=== PATIENT | male | born 1975 | race Caucasian/White ===

== ENCOUNTER 2024-11-01 10:12 | Inpatient (IN) | payer OTHER ==
[~2024-11-01] VITALS: Ht 170.2 cm; Wt 77.3 kg
[2024-11-01] MEDS ORDERED: METF-1211 PO (11:04)
[2024-11-01 12:38] LABS: CALCIUM, TOTAL 8.7 mg/dL (8.8-10.5); CREATININE 0.79 mg/dL (0.60-1.30); GLOMERULAR FILTR. RATE CALC > 60 mL/min (>60); GLUCOSE,RANDOM 123 mg/dL (70-110); PLATELET COUNT (AUTO) 372 K/uL (150-450); RED BLOOD CELL COUNT(AUTO) 5.10 MIL/uL (4.50-5.90); RED CELL DISTRIBUTION WIDTH 13.0 % (11.5-14.5); SODIUM SERUM 141 mmol/L (136-145); UREA NITROGEN, BLOOD 7 mg/dL (7-18); WHITE BLOOD COUNT (AUTO) 6.9 K/uL (4.5-11.0)
[2024-11-01 12:50] LABS: ERYTHROCYTE SEDIMENTATION RATE 26 MM/HR (0-15)
[2024-11-01] MEDS: VANCOMYCIN 1GM/WATER(PEG/NADA) 200 ML IV ONE (13:15)
[2024-11-01] MEDS: PIPERACILLIN/TAZO 3.375 GM/D5W 50 ML IV ONE (14:24)
[2024-11-01 17:10] VITALS: BP 114/76; PULSE 59; RESP 17; TEMP 98.1; O2SAT 100
[2024-11-01] MEDS ORDERED: DEXTROSE 50%-WATER 25 GM/50 ML SYRINGE IVP PRN (20:15)
[2024-11-01 20:34] VITALS: BP 100/61; PULSE 60; RESP 18; TEMP 98.1; O2SAT 98
[2024-11-01] MEDS ORDERED: SODIUM CHLORIDE 0.9% 500 ML IV ONE (21:10)
[2024-11-01] MEDS: PIPERACILLIN/TAZO 3.375 GM/D5W 50 ML IV SCH (21:12)
[2024-11-01 21:46] LABS: GLUCOMETER DEV NAME(LOC) 6N.2C; GLUCOSE,POINT OF CARE 131 MG/DL (70-110)
[2024-11-01] MEDS ORDERED: SODIUM CHLORIDE 0.9% 100 ML ONE (22:54)
[2024-11-01] MEDS ORDERED: IOHEXOL 300 MG/ML 100 ML VIAL ONE (22:54)
[2024-11-01] MEDS: ACETAMINOPHEN 325 MG TABLET PO PRN (23:41)
[2024-11-01] MEDS: VANCOMYCIN 1GM/WATER(PEG/NADA) 200 ML IV SCH (23:41)
[2024-11-02 04:37] VITALS: BP 102/61; PULSE 68; RESP 18; TEMP 98.1; O2SAT 99
[2024-11-02 06:16] LABS: GLUCOMETER DEV NAME(LOC) 6S.1D; GLUCOSE,POINT OF CARE 131 MG/DL (70-110)
[2024-11-02 06:57] LABS: CALCIUM, TOTAL 8.5 mg/dL (8.8-10.5); CREATININE 0.88 mg/dL (0.60-1.30); GLOMERULAR FILTR. RATE CALC > 60 mL/min (>60); GLUCOSE,RANDOM 124 mg/dL (70-110); SODIUM SERUM 138 mmol/L (136-145); UREA NITROGEN, BLOOD 8 mg/dL (7-18)
[2024-11-02] MEDS: INSULIN LISPRO 100 UNITS/ML SQ PRN (11:38)
[2024-11-02 19:45] VITALS: BP 104/72; PULSE 82; RESP 18; TEMP 97.9; O2SAT 98
[2024-11-02 20:21] LABS: GLUCOMETER DEV NAME(LOC) 6S.1D; GLUCOSE,POINT OF CARE 209 MG/DL (70-110)
[2024-11-02 21:10] LABS: GLUCOMETER DEV NAME(LOC) 6S.2; GLUCOSE,POINT OF CARE 192 MG/DL (70-110)
[2024-11-02 23:51] LABS: GLUCOMETER DEV NAME(LOC) 6N.2C; GLUCOSE,POINT OF CARE 116 MG/DL (70-110)
[2024-11-03 03:15] VITALS: BP 94/72; PULSE 71; RESP 18; TEMP 98.1; O2SAT 98
[2024-11-03 07:25] LABS: CALCIUM, TOTAL 9.0 mg/dL (8.8-10.5); CREATININE 0.91 mg/dL (0.60-1.30); GLOMERULAR FILTR. RATE CALC > 60 mL/min (>60); GLUCOSE,RANDOM 116 mg/dL (70-110); SODIUM SERUM 138 mmol/L (136-145); UREA NITROGEN, BLOOD 13 mg/dL (7-18)
[2024-11-03 08:36] VITALS: BP 99/74; PULSE 71; RESP 20; TEMP 98.4; O2SAT 98
[2024-11-03] MEDS ORDERED: SODIUM CHLORIDE 0.9% 500 ML IV ONE (17:47)
[2024-11-03 19:01] LABS: GLUCOMETER DEV NAME(LOC) 6N.2C; GLUCOSE,POINT OF CARE 106 MG/DL (70-110)
[2024-11-03] MEDS: VANCOMYCIN 1.25 GM/WATER(PEG) 250 ML IV SCH (19:38)
[2024-11-03 20:06] LABS: GLUCOMETER DEV NAME(LOC) 6S.2; GLUCOSE,POINT OF CARE 176 MG/DL (70-110)
[2024-11-03 20:06] LABS: GLUCOMETER DEV NAME(LOC) 6S.2; GLUCOSE,POINT OF CARE 122 MG/DL (70-110)
[2024-11-03 21:07] VITALS: BP 97/70; PULSE 63; RESP 20; TEMP 97.9; O2SAT 98
[2024-11-04 03:31] LABS: GLUCOMETER DEV NAME(LOC) 6N.2C; GLUCOSE,POINT OF CARE 113 MG/DL (70-110)
[2024-11-04 03:56] VITALS: BP_SYST 84; BP_SYST 94; BP_DIAS 74; PULSE 72; RESP 16; TEMP 98.2; O2SAT 98
[2024-11-04 07:00] LABS: CALCIUM, TOTAL 9.1 mg/dL (8.8-10.5); CREATININE 0.88 mg/dL (0.60-1.30); GLOMERULAR FILTR. RATE CALC > 60 mL/min (>60); GLUCOSE,RANDOM 98 mg/dL (70-110); SODIUM SERUM 138 mmol/L (136-145); UREA NITROGEN, BLOOD 10 mg/dL (7-18)
[2024-11-04 07:37] VITALS: BP 111/83; PULSE 69; RESP 18; TEMP 97.9; O2SAT 100
[2024-11-04 07:41] LABS: GLUCOMETER DEV NAME(LOC) 6S.1D; GLUCOSE,POINT OF CARE 108 MG/DL (70-110)
[2024-11-04] MEDS: HYDROGEN PEROXIDE 3% 118 ML SOLUTION TP ONE (08:21)
[2024-11-04] MEDS: CADEXOMER IODINE 0.9% 40 GM GEL TP ONE (08:21)
[2024-11-04] MEDS ORDERED: LINE600T14 PO (12:39)
[2024-11-04] MEDS ORDERED: LEVO750T68 PO (12:39)
[2024-11-04 15:26] LABS: GLUCOMETER DEV NAME(LOC) 6S.2; GLUCOSE,POINT OF CARE 222 MG/DL (70-110)
== END 2024-11-04 14:25 | DRG 603 ==
LOC: EMS 10:15 → EDH 13:11 → 6N 17:07
PROVIDERS: ADMIT Internal Medicine; ATTEND Internal Medicine
DX: L03.012 Cellulitis of left finger (principal); S61.432A Puncture wound without foreign body of left hand, initial encounter; E11.9 Type 2 diabetes mellitus without complications; E83.51 Hypocalcemia; X58.XXXA Exposure to other specified factors, initial encounter; Z79.4 Long term (current) use of insulin; Y93.89 Activity, other specified; Y92.89 Other specified places as the place of occurrence of the external cause; Y99.8 Other external cause status
CPT/HCPCS: 73201; 80048; 80202; 82962; 83036; 85025; 85651; 86140; 87040; 96365; 96366; 96368; 99285; J2543; J7040; J7050; Q9967; 36415-L1; 36415-TC